=== PATIENT | male | born 1945 | race Caucasian/White ===

== ENCOUNTER 2022-03-16 09:30 | Outpatient (CLI) | payer BC ==
[2022-03-16 10:57] LABS: #Basophils 0.1 10x3/uL (0.0-0.2); #Eosinphils 0.4 10x3/uL (0.0-0.5); #Monocytes 0.7 10x3/uL (0.0-1.1); #Neutrophils 3.4 10x3/uL (1.5-8.4); %Basophils 1.7 % (0.0-2.0); %Eosinophils 5.8 % (0.0-6.0); %Lymphocytes 25.2 % (18.0-47.0); %Monocytes 10.8 % (0.0-10.0); %Neutrophils 56.2 % (40.0-75.0); Hemoglobin 13.7 g/dL (13.5-17.5); Mean Corpuscular HGB CONC 34.3 g/dL (32.0-36.0); Mean Corpuscular Hemoglobin 30.5 pg (27.0-33.0); Mean Corpuscular Volume 88.9 fl (81.2-95.1); Mean Platelet Volume 9.6 fl (7.4-10.4); Platelet Count 198 10x3/uL (150-450); RBC Distribution Width 12.6 % (11.5-14.5); Red Blood Cell (RBC) Count 4.49 10x6/uL (4.32-5.72)
[2022-03-16 11:01] LABS: ALT (SGPT) 29 U/L (8-55); AST (SGOT) 33 U/L (5-34); Albumin 4.2 g/dL (3.4-4.8); Alkaline Phosphatase 72 U/L (40-110); Anion Gap 11 mmol/L (10-20); BUN (Urea Nitrogen) 16 mg/dL (8.4-25.7); Bilirubin, Total 0.6 mg/dL (0.2-1.2); Calc. Creatinine Clearance 0 mL/min (70-130); Calcium 9.3 mg/dL (7.8-10.44); Carbon Dioxide 24 mmol/L (23-31); Chloride 106 mmol/L (98-107); Estimated GFR 76; Globulin 2.1 g/dL (2.4-3.5); Glucose 125 mg/dL (83-110); Potassium 4.2 mmol/L (3.5-5.1); Protein, Total 6.3 g/dL (5.8-8.1); Sodium 137 mmol/L (136-145)
== END 2022-03-16 09:31 | disposition home or self-care (01) ==
LOC: LABBT 09:30
PROVIDERS: ATTEND Internal Medicine Cardiovascular Disease
DX: Z01.812 Encounter for preprocedural laboratory examination (principal); I25.10 Atherosclerotic heart disease of native coronary artery without angina pectoris; R94.39 Abnormal result of other cardiovascular function study
CPT/HCPCS: 80053; 85025

== ENCOUNTER 2022-03-17 05:46 | Day surgery (SDC) | payer BC ==
[2022-03-16 11:18] VITALS: BMI 25.0
[2022-03-17] MEDS ORDERED: Lidocaine 1% (PF) 30 ML VIAL ONE (06:06)
[2022-03-17] MEDS ORDERED: FENTANYL 50 MCG/ML 1 ML VIAL ONE ×2 (06:52→09:16)
[2022-03-17] MEDS ORDERED: Midazolam HCl 2 mg/2 ml Vial ONE ×2 (06:53→09:16)
[2022-03-17] MEDS ORDERED: Heparin 10,000 UNITS/ 10 ML VIAL ONE ×2 (06:53→10:31)
[2022-03-17] MEDS ORDERED: Iopamidol 370 76% 100 ML VIAL ONE (09:02)
[2022-03-17] MEDS ORDERED: Atropine Sulfate 1 mg/1 ml Vial ONE (09:33)
[2022-03-17] MEDS ORDERED: Nitroglycerin 100MG/250ML BOT 250 ML ONE (09:39)
[2022-03-17] MEDS ORDERED: Aspirin Chewable 81 MG TAB ONE (10:05)
[2022-03-17] MEDS ORDERED: TICAGRELOR 90 MG TABLET ONE (10:49)
== END 2022-03-17 16:55 | disposition home or self-care (01) ==
LOC: SDC 05:46
PROVIDERS: ATTEND Internal Medicine Cardiovascular Disease
PROC: B2111ZZ Fluoroscopy of Multiple Coronary Arteries using Low Osmolar Contrast (ICD-10-PCS; principal; 2022-03-17)
PROC: 027034Z Dilation of Coronary Artery, One Artery with Drug-eluting Intraluminal Device, Percutaneous Approach (ICD-10-PCS; principal; 2022-03-17)
DX: I25.10 Atherosclerotic heart disease of native coronary artery without angina pectoris (principal); I45.2 Bifascicular block; K21.9 Gastro-esophageal reflux disease without esophagitis; E78.00 Pure hypercholesterolemia, unspecified; Z79.82 Long term (current) use of aspirin; Z79.899 Other long term (current) drug therapy; Z88.1 Allergy status to other antibiotic agents
CPT/HCPCS: 85347; 92928; 93005; 93460; 97139; 99152; 99153; C1769; C1874; C1887; C9600; J0461; J1644; J2001; J2250; J3010

== ENCOUNTER 2022-03-18 22:00 | Emergency (ER) | payer BC ==
[2022-03-18 23:00] LABS: #Basophils 0.1 thou/uL (0.0-0.2); #Eosinphils 0.5 thou/uL (0.0-0.7); #Lymphocytes 1.6 thou/uL (1.20-3.40); #Monocytes 0.9 thou/uL (0.11-0.59); #Neutrophils 5.3 thou/uL (1.40-6.50); %Eosinophils 5.7 % (0.0-10.0); %Lymphocytes 19.4 % (21.0-51.0); %Monocytes 10.3 % (0.0-10.0); %Neutrophils 63.6 % (42.0-75.0); Hemoglobin 13.9 g/dL (14.0-18.0); Mean Corpuscular HGB CONC 33.6 g/dL (32.0-36.0); Mean Corpuscular Hemoglobin 31.4 pg (27.0-31.0); Mean Corpuscular Volume 93.5 fl (78.0-98.0); Mean Platelet Volume 7.1 fL (7.4-10.4); Platelet Count 188 10x3/uL (130-400); RBC Distribution Width 12.1 % (11.5-14.5); Red Blood Cell (RBC) Count 4.42 mill/uL (4.70-6.10); White Blood Cell (WBC) Count 8.3 10x3/uL (4.8-10.8)
[2022-03-18 23:10] LABS: INR-International Normal Ratio 1.1; Prothrombin Time 14.7 sec (12.0-14.7)
[2022-03-18 23:20] LABS: ALT (SGPT) 27 U/L (8-55); AST (SGOT) 30 U/L (5-34); Albumin 3.9 g/dL (3.4-4.8); Alkaline Phosphatase 80 U/L (40-110); Anion Gap 12 mmol/L (10-20); BUN (Urea Nitrogen) 12 mg/dL (8.4-25.7); Bilirubin, Total 0.5 mg/dL (0.2-1.2); Calc. Creatinine Clearance 0 mL/min (70-130); Carbon Dioxide 24 mmol/L (23-31); Chloride 107 mmol/L (98-107); Estimated GFR 77; Globulin 2.3 g/dL (2.4-3.5); Glucose 127 mg/dL (83-110); Potassium 3.7 mmol/L (3.5-5.1); Protein, Total 6.2 g/dL (5.8-8.1); Sodium 139 mmol/L (136-145)
== END 2022-03-18 23:47 | disposition home or self-care (01) ==
LOC: ERS 22:00
DX: M79.81 Nontraumatic hematoma of soft tissue (principal); Z87.891 Personal history of nicotine dependence
CPT/HCPCS: 36415; 76936; 80053; 85025; 85610; 85730

== ENCOUNTER 2022-03-23 14:32 | Outpatient (CLI) | payer BC | END 2022-03-23 14:33 | disposition home or self-care (01) | LOC: ULT 14:32 | PROVIDERS: ATTEND Internal Medicine Cardiovascular Disease | DX: S80.11XA Contusion of right lower leg, initial encounter (principal) | CPT/HCPCS: 76936 ==